=== PATIENT | female | born 1975 | race Caucasian/White ===

== ENCOUNTER 2016-12-11 15:15 | Outpatient (CLI) | payer OTHER ==
[~2016-12-11] VITALS: Ht 157.5 cm; Wt 51.8 kg
[2016-12-11 15:23] VITALS: BP 96/51; PULSE 87; RESP 16; Ht 157.5 cm; Wt 51.8 kg
[2016-12-11] MEDS ORDERED: IBUP-1542 PO (15:32)
[2016-12-11] MEDS ORDERED: OMEP20CA16 PO (15:32)
[2016-12-11] MEDS ORDERED: FAMO20TA18 PO (15:32)
[2016-12-11] MEDS ORDERED: FLUT16SP17 NASAL (15:32)
[2016-12-11] MEDS ORDERED: MIDO5TAB19 PO (15:32)
--- NOTE | 2016-12-11 15:41 | PN ---
Date/Time of Note Date/Time of Note DATE: 12/11/16 TIME: 15:38 Assessment/Plan Assessment/Plan Assessment/Plan [facility] Progress Note Date of Service: 12/11/2016 Today's Impression & Plan: Overall stable and doing relatively well post d/c from [facility] for partial SBO. Seems to be tolerating regular diet. Anxious about recurrence of symptoms. Also focused on her hemorrhoids. No indication for acute surgical intervention. I discussed this with patient and her and answered all questions. They appeared to understand and agreed with the plans. With above impressions have recommended the followin. Cont regular diet 2. F/u with PCP 3. F/u with us prn 4. Referral to GI or surgical colleague with resources for office based banding for her hemorrhoids Thank you again for allowing us to participate in the care of this very pleasant lady and I'm certain her wonderful family. If there are any questions, please feel free to call me at area code [phone]. Nature presenting problem: High-risk Complexity of decision making: Moderate to high complexity Please note: Spelling or grammatical errors in this note are likely due to EHR/ dictation systems and are not reflective of patient care quality. Occasional wrong-word or sound-alike substitutions may have occurred due to the inherent limitations of voice recognition software. Please read the chart carefully and recognize, using context, where the substitutions have occurred. The chart may also contain mistakes due to difficulties with voice recognition software. Also please note that the dictation timestamp of this note does not necessarily reflected time of the visit for this service. Updated clinical summary: A very pleasant 41-year old lady presenting with a clinical picture that could be consistent with partial small bowel obstruction versus viral gastroenteritis. Prior hospitalizations in the last 11 months: July 2016 [place]; Dec 2015 [place] and [place]; EGD at that time unrevealing. Small bowel follow-through 11/21/2016 showed passage of contrast to colon in normal transit time and mild to moderately dilated small intestine. Patient has several bowel movements after this test and generally felt much improved. Comorbidities: 1. History of complications after loss of (? 4 months) with open pelvic surgery reportedly associated with ICU care and prolonged hospital stay and complications (details missing) 2. Gastroesophageal reflux disease 3. History of hypotension 4. History of headaches Subjective: No major events, and reported no major abdominal pain since d/c from hospital. No N/V, SOB or CP. + flatus and + BM. + activity. Objective: Vitals: reviewed; please also see EHR Physical Exam: Lungs: breathing comfortably without tachypnea; no audible wheezes, rales or rhonchi on gross exam Abd: Soft, nontender to palpation, and non-distended; no peritoneal signs or guarding Skin: Appears pink and feels warm to touch. Neuro: Awake, alert and follows commands appropriately Exam/Review of Systems Vital Signs Vitals Vital Signs Date Time Temp Pulse Resp B/P Pulse Ox O2 Delivery O2 Flow Rate FiO2 12/11/16 15:23 98.0 87 16 96/51 96 Room Air LUIS GUAMAN M.D. Dec 11, 2016 15:41
== END 2016-12-11 17:00 | disposition home or self-care (01) ==
LOC: HPC 15:15
PROVIDERS: ATTEND Transplant Surgery
DX: K56.60 Unspecified intestinal obstruction (principal); K21.9 Gastro-esophageal reflux disease without esophagitis
CPT/HCPCS: G0463

== ENCOUNTER 2017-04-16 14:19 | Outpatient (CLI) | END 2017-04-16 17:00 | disposition home or self-care (01) ==